=== PATIENT | male | born 1965 | race African-American/Black ===

== ENCOUNTER 2018-04-07 17:21 | Observation (INO) | payer OTHER ==
--- NOTE | 2018-04-07 17:33 | PDOC ---
History of Present Illness - General History Source: Patient Exam Limitations: No Limitations - History of Present Illness Initial Comments: 04/07/18 17:55 The patient is a 52 year old male, with a significant past medical history of essential thrombocytosis, who presents to the emergency department with left arm numbness since approximately 16:10 today. Patient reports he fell asleep on the train, but when he woke up he noted left arm numbness and EMS was activated. When EMS arrived on scene, patient reports his left arm numbness was localized from the left elbow to hand, and his BgM was 92. He reports some dizziness, which he relates to nervousness about the numbness. He denies any associated trauma, headache, lightheadedness, changes in vision, tingling, neck pain, nausea, or vomiting. Patient endorses mild chest discomfort 2 hours prior to presentation, but denies any shortness of breath, diaphoresis, palpitations, or lower extremity edema. He denies any fever, chills, or cough. He denies any recent travel or sick contacts. Allergies: NKDA Past Surgical History: None reported Social History: Non smoker. No ETOH or recreational drug use. <Johnny Laurent - Last Filed: 04/07/18 20:00> <Susana Zayas - Last Filed: 04/07/18 20:05> - General Chief Complaint: Head/Neck problem Stated Complaint: NUMBNESS Time Seen by Provider: 04/07/18 17:26 tPA Exclusion Checklist 0-3hr - Time Elapsed Date last known well: 04/07/18 Time last known well: 16:10 Elaspsed time: Day(s) and 3 Hour(s) and 54 Minutes - Thrombolytic Therapy Candidate Is the patient eligible for Thrombolytic Therapy?: No - Ineligibility reason(s) Reasons No tPA given: See reason(s) noted above (symptoms are resolving) <Susana Zayas - Last Filed: 04/07/18 20:05> NIH Stroke Scale - Last Known Well Date/Time & Onset Date Last Known Well: 04/07/18 Time Last Known Well: 16:10 - Initial Evaluation Level of consciousness: Alert Ask patient the month and their age: Answers both correctly Ask patient to open & close eyes; make fist and let go: Obeys both correctly Best gaze (horizontal eye movement): Normal Visual field testing: No visual field loss Facial paresis (Show teeth/raise eyebrows/close eyes tight): Normal symmetrical movement Motor Function: Left Arm: Normal Motor Function: Right Arm: Normal (extends arm 90 (or 45) degrees for 10 seconds without drift Motor Function: Left Leg: Normal (extends leg 30 degrees for 5 seconds without drift) Motor Function: Right Leg: Normal (extends leg 30 degrees for 5 seconds without drift) Limb Ataxia: No ataxia Sensory(Use pinprick test arms,legs,trunk,face/side to side): Mild to moderate decrease in sensation Best language (Describe picture, name items, read sentences): No Aphasia Dysarthria (read several words): Normal articulation Extinction and Inattention: No abnormality - Total Score NIH Stroke Scale Score: 1 <Susana Zayas - Last Filed: 04/07/18 20:05> Past History <Johnny Laurent - Last Filed: 04/07/18 20:00> <Susana Zayas - Last Filed: 04/07/18 20:05> - Past Medical History Allergies/Adverse Reactions: Allergies Allergy/AdvReac Type Severity Reaction Status Date / Time No Known Allergies Allergy Unverified 04/07/18 18:04 Home Medications: Ambulatory Orders NK [No Known Home Medication] 04/07/18 Review of Systems - Review of Systems Able to Perform ROS?: Yes Comments:: 04/07/18 17:55 GENERAL/CONSTITUTIONAL: No fever or chills. No weakness. HEAD, EYES, EARS, NOSE AND THROAT: No change in vision. No ear pain or discharge. No sore throat. GASTROINTESTINAL: No nausea, vomiting, diarrhea or constipation. GENITOURINARY: No dysuria, frequency, or change in urination. CARDIOVASCULAR: +Chest pain. No shortness of breath. RESPIRATORY: No cough, wheezing, or hemoptysis. MUSCULOSKELETAL: No joint or muscle swelling or pain. No neck or back pain. SKIN: No rash NEUROLOGIC: +Dizziness, left arm numbness. No headache, loss of consciousness. ENDOCRINE: No increased thirst. No abnormal weight change. HEMATOLOGIC/LYMPHATIC: No anemia, easy bleeding, or history of blood clots. ALLERGIC/IMMUNOLOGIC: No hives or skin allergy. <Johnny Laurent - Last Filed: 04/07/18 20:00> *Physical Exam - Physical Exam Comments: 04/07/18 17:56 Constitutional: Awake, alert, oriented. No acute distress. Head: Normocephalic. Atraumatic Eyes: PERRL. EOMI. Conjunctivae are not pale. ENT: Mucous membranes are moist and intact. Posterior pharynx without exudates or erythema. Uvula midline. Neck: Supple. Full ROM. No lymphadenopathy. Cardiovascular: Regular rate. Regular rhythm. S1, S2 regular. Distal pulses are 2+ and symmetric. Pulmonary/Chest: No evidence of respiratory distress. Clear to auscultation bilaterally No wheezing, rales or rhonchi. Abdominal: Soft and non-distended. There is no tenderness. No rebound, guarding or rigidity. No organomegaly. No palpable masses. Good bowel sounds. Back: No CVA tenderness. Musculoskeletal: No edema. No cyanosis. No clubbing. Full range of motion in all extremities. No calf tenderness. Radial/pedal pulses are intact and 2+ bilaterally Skin: Skin is warm and dry. No petechiae. No purpura. Neurological: Decreased sensation in left hand, which is improving. Alert and oriented to person, place, and time. Cranial nerves II-XII are grossly intact. Normal speech. Strength is grossly symmetric. No ataxia. Psychiatric: Good eye contact. Normal interaction, affect and behavior. <Johnny Laurent - Last Filed: 04/07/18 20:00> Heart Score/ECG Review - ECG Intrepretation Comment:: 04/07/18 18:04 sinus harmony at 50, nl axis, nl interval, lvh, t wave inversions III which are nonspecific, no other acute vitor/std <Susana Zayas - Last Filed: 04/07/18 20:05> ED Treatment Course - LABORATORY CBC & Chemistry Diagram: 04/07/18 17:43 04/07/18 17:43 - ADDITIONAL ORDERS Additional order review: 04/07/18 17:43 RBC 4.66 MCV 90.7 MCHC 33.3 RDW 14.8 MPV 8.1 Neutrophils % 65.6 Lymphocytes % 26.5 Monocytes % 6.0 Eosinophils % 1.1 Basophils % 0.8 - RADIOLOGY Radiograph Interpretation: 04/07/18 20:00 EXAM: Head CT INTERPRETED BY: Asia Berkowitz REVIEWED BY: Dr. Zayas IMPRESSION: Mild volume loss that is more prominent in the posterior fossa. No mass lesion, gross acute infarct or intracranial hemorrhage are identified. Correlate clinically to determine further evaluation and follow-up. EXAM: CXR INTERPRETED BY: Asia Berkowitz REVIEWED BY: Dr. Zayas IMPRESSION: No acute cardiopulmonary disease is present <Johnny Laurent - Last Filed: 04/07/18 20:00> - LABORATORY CBC & Chemistry Diagram: 04/07/18 17:43 04/07/18 17:43 <Susana Zayas - Last Filed: 04/07/18 20:05> Medical Decision Making - Critical Care Time Total Critical Care Time (minutes): 30 Critical Care Statement: The care of this patient involved high complexity decision making to prevent further life threatening deterioration of the patient 's condition and/or to evaluate & treat vital organ system(s) failure or risk of failure. - Medical Decision Making 04/07/18 17:44 a/p: 52yo male with essential thrombcytosis with L arm numbness -slept on the train - last known well was 4:10p, woke up with L arm numbness -no neck pain, no headache -pt states numbness was from elbow to hand, now only hand, resolving symptoms -glucose 92 by medics -code hill activated -consult placed to dr. cardenas -pt went to head ct -most likely TIA vs cervical radiculopathy from sleeping -will check labs -had cp 2 hours prior to numbness - will check ekg, cxr, ekg -will monitor and reassess 04/07/18 17:[address] Hernandez - no tpa, mild symptoms will see in consult asa if head ct negative 04/07/18 18:[address] with the patient pt agrees to stay for obs for tia/cp microblog sent to [facility] 04/07/18 20:04 case discussed with [facility] who accepts pt under Dr. Schafer to stroke tele <Susana Zayas - Last Filed: 04/07/18 20:05> *DC/Admit/Observation/Transfer - Attestations Scribe Attestion: 04/07/18 17:57 Documentation prepared by Johnny Laurent, acting as certified medical technician assistant for Susana Zayas DO. <Johnny Laurent - Last Filed: 04/07/18 20:00> - Discharge Dispostion Decision to Admit order: Yes - Attestations Physician Attestion: 04/07/18 18:54 I, Dr. Susana Zayas DO, attest that this document has been prepared under my direction and personally reviewed by me in its entirety. I further attest, that it accurately reflects all work, treatment, procedures and medical decision -making performed by me. <Susana Zayas - Last Filed: 04/07/18 20:05> Diagnosis at time of Disposition: TIA (transient ischemic attack), Chest pain - Discharge Dispostion Condition at time of disposition: Fair
[2018-04-07 17:50] LABS: BASO % 0.8 % (0-2.0); EOS % 1.1 % (0-4.5); HEMATOCRIT 42.3 % (35.4-49); HEMOGLOBIN 14.1 GM/dL (11.7-16.9); LYMPH % 26.5 % (8-40); MCH 30.2 pg (25.7-33.7); MCHC 33.3 g/dl (32.0-35.9); MEAN CELL VOLUME 90.7 fl (80-96); MEAN PLT VOLUME 8.1 fl (7.5-11.1); NEUT % 65.6 % (42.8-82.8); PLATELET COUNT 673 K/MM3 (134-434); RBC 4.66 M/mm3 (4.00-5.60); RDW 14.8 % (11.9-15.9)
[2018-04-07 18:03] LABS: INR 0.98 (0.82-1.09); PROTHROMBIN TIME (PATIENT) 11.1 SEC (9.7-13.0)
[2018-04-07 18:05] LABS: ACTIVATED PTT 43.7 SECONDS (26.9-34.4)
[2018-04-07 18:07] LABS: ALBUMIN 4.4 g/dl (3.4-5.0); ANION GAP 6 (8-16); BLOOD UREA NITROGEN 14 mg/dL (7-18); CALCIUM 9.1 mg/dL (8.5-10.1); CHLORIDE 105 mmol/L (98-107); CHOLESTEROL 151 mg/dL (50-200); CO2 28 mmol/L (21-32); CREATININE 1.1 mg/dL (0.7-1.3); GLUCOSE,RANDOM 103 mg/dL (74-106); MAGNESIUM 2.2 mg/dL (1.8-2.4); POTASSIUM 4.1 mmol/L (3.5-5.1); SGOT/AST 20 U/L (15-37); SGPT/ALT 28 U/L (12-78); SODIUM 139 mmol/L (136-145); TOT PROT 7.6 g/dl (6.4-8.2); TRIGLYCERIDES 106 mg/dL (35-160)
[2018-04-07 18:14] LABS: ALK PHOS 57 U/L (45-117); HDL CHOLESTEROL 45 mg/dL (40-60)
[2018-04-07] MEDS ORDERED: ASPIRIN 81 MG CHEWABLE TABLETS PO ONE (18:15)
[2018-04-07 18:21] LABS: URINE APPEARANCE CLEAR; URINE BILIRUBIN NEGATIVE (<2.0 mg/dL); URINE BLOOD NEGATIVE (NEGATIVE); URINE COLOR COLORLESS; URINE GLUCOSE (UA) NEGATIVE (NEGATIVE); URINE KETONE NEGATIVE (NEGATIVE); URINE LEUK ESTERASE NEGATIVE (NEGATIVE); URINE NITRITE NEGATIVE (NEGATIVE); URINE PROTEIN NEGATIVE (NEGATIVE); URINE UROBILINOGEN NEGATIVE mg/dL (0.2-1.0)
[2018-04-07] MEDS ORDERED: ASPIRIN 81 MG CHEWABLE TABLETS ONE (18:22)
[2018-04-07 18:28] VITALS: BMI 27.0
[2018-04-07 19:35] LABS: PLATELET ESTIMATE MOD INCREASED
--- NOTE | 2018-04-07 19:53 | PN ---
Teaching Attending Note Name of Resident: Wesley Kebede ATTENDING PHYSICIAN STATEMENT I saw and evaluated the patient. I reviewed the resident's note and discussed the case with the resident. I agree with the resident's findings and plan as documented. SUBJECTIVE: Patient is a 52 year old man, with a significant past medical history of essential thrombocytosis (never worked up), who presents to the ER with left arm numbness since approximately 16:10 today. Patient reports he fell asleep on the train, but when he woke up he noted left arm numbness and EMS was activated. When EMS arrived on scene, patient reports his left arm numbness was localized from the left elbow to hand. He reports some dizziness, which he relates to anxiety about the numbness. He also had mild chest discomfort 2 hours prior to presentation, but denies any shortness of breath, diaphoresis, palpitations, or lower extremity edema. He denies any associated trauma, headache, lightheadedness, changes in vision, tingling, neck pain, nausea, or vomiting. By the time he got to the ER, the arm numbness resolved and was limited to just his left thumb. OBJECTIVE: Alert and in no acute distress Vital Signs Period Temp Pulse Resp BP Sys/Almeida Pulse Ox Last 24 Hr 98.5 F 71 16 151/93 100 HEENT: No Jaundice, eye redness or discharge, PERRLA, EOMI. Normocephalic, atraumatic. External ears are normal and hearing is grossly intact. No nasal discharge. Neck: Supple, nontender. No palpable adenopathy or thyromegaly. No JVD Chest: Good effort. Clear to auscultation and percussion. Heart: Regular. No S3, rub or murmur Abdomen: Not distended, soft, nontender and no HSM. No rebound or guarding. Normoactive bowel sounds. Ext: Peripheral pulses intact. No leg edema. Skin: Warm and dry. No petechiae, rash or ecchymosis. Neuro: Alert. Oriented x3. CN 2-12 grossly intact. Left thumb paresthesia. 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 Home Medications Medication Instructions Recorded NK [No Known Home Medication] 04/07/18 Abnormal Lab Results 04/07/18 04/07/18 04/07/18 17:43 17:43 17:43 Plt Count 673 H PTT (Actin FS) 43.7 H Anion Gap 6 L TSH 3.81 H ASSESSMENT AND PLAN: 1. TIA - Head CT scan shows volume loss especially in the posterior fossa, which is unusual for a man his age. Will get an MRI/MRA of his brain to rule out CVA since essential thrombocytosis increases his risk for ischemic stroke. Will get a C spine MRI to rule out cervical radiculopathy. Will get lipid profile, treat with asprin and statin, get ECHO, carotid doppler and monitor on telemetry. Consult neurology. 2. Chestpain - Normal troponin but EKG shows bradycardia with nonspecific T wave changes and LVH. Will rule out ACS and consult cardiology. 3. Hypertension - Though he denies history of HTN, EKG shows LVH and his BP is high. Will repeat BP X 2 and treat him if it is still high - once CVA is excluded. Will use ARB, amlodipine and low salt diet 4. Elevated TSH - Will get T4 and T3RU. 5. Essential thrombocytosis - Consult hematology for further workup. 6. DVT prophylaxis - Heparin 5000u sq tid 7. Advance directives - Full code
--- NOTE | 2018-04-07 20:59 | HP ---
CHIEF COMPLAINT: PCP: HISTORY OF PRESENT ILLNESS: The patient is a 52 yo m w/ PMH essential thrombocytosis who comes in c/o left arm numbness and weakness since 4pm this afternoon. Earlier int , at approx 2pm, the patient had an episode of left sided chest pressure which resolved spontaneously after 1 minute. Patient decribes the pain as a pressure, non-radiating and denies any exacerbating or alleviating factors. The patient elected to take the train home due to fatigue. The patient endorses sleeping on the train, when he woke up the patient states that his left arm from shoulder to fingers were numb and weak. In addition, the patient states that he lost fine motor control in the same arm. The patient initially thought that his arm was asleep, but activated EMS when the feeling did not go away after a few minutes. en route to the hospital and in the ED, the patient's symptoms rapidly began to resolve and he now complains of only left thumb numbness. Patient denies trauma, SOB, fevers, chills, abdominal pain, back pain, nerve pain, changes in vision, headaches or other focal neurological symptoms. ER course was notable for: (1) CT head showing no acute processes, but volume loss in the posterior fossa. 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 -patient has recently started a new workout plan Family History: Grandfather and mother both with colon Ca Allergies No Known Allergies Allergy (Unverified 04/07/18 18:04) HOME MEDICATIONS: Home Medications Medication Instructions Recorded NK [No Known Home Medication] 04/07/18 REVIEW OF SYSTEMS CONSTITUTIONAL: Absent: fever, chills, diaphoresis, generalized weakness, malaise, loss of appetite, weight change HEENT: Absent: rhinorrhea, nasal congestion, throat pain, throat swelling, difficulty swallowing, mouth swelling, ear pain, eye pain, visual changes CARDIOVASCULAR: Absent: syncope, palpitations, irregular heart rate, lightheadedness, peripheral edema RESPIRATORY: Absent: cough, shortness of breath, dyspnea with exertion, orthopnea, wheezing, stridor, hemoptysis GASTROINTESTINAL: Absent: abdominal pain, abdominal distension, nausea, vomiting, diarrhea, constipation, melena, hematochezia GENITOURINARY: Absent: dysuria, frequency, urgency, hesitancy, hematuria, flank pain, genital pain MUSCULOSKELETAL: Absent: myalgia, arthralgia, joint swelling, back pain, neck pain SKIN: Absent: rash, itching, pallor HEMATOLOGIC/IMMUNOLOGIC: Absent: easy bleeding, easy bruising, lymphadenopathy, frequent infections ENDOCRINE: Absent: unexplained weight gain, unexplained weight loss, heat intolerance, cold intolerance NEUROLOGIC: Absent: headache, dizziness, unsteady gait, seizure, mental status changes, bladder or bowel incontinence PSYCHIATRIC: Absent: depression, suicidal or homicidal ideation, hallucinations. PHYSICAL EXAMINATION Vital Signs - 24 hr 04/07/18 04/07/18 04/07/18 17:25 18:30 19:56 Temperature 98.5 F Pulse Rate 71 Pulse Rate [ 62 48 L Apical] Respiratory 16 17 18 Rate Blood Pressure 151/93 Blood Pressure 142/76 133/83 [Left Arm] O2 Sat by Pulse 100 98 100 Oximetry (%) 04/07/18 20:42 Temperature Pulse Rate Pulse Rate [ 51 L Apical] Respiratory 17 Rate Blood Pressure Blood Pressure 137/84 [Left Arm] O2 Sat by Pulse Oximetry (%) GENERAL: Awake, alert, and fully oriented, in no acute distress. HEAD: Normal with no signs of trauma. EYES: Pupils equal, round and reactive to light, extraocular movements intact, sclera anicteric, conjunctiva clear. No lid lag. EARS, NOSE, THROAT: oropharynx clear without exudates. Moist mucous membranes. NECK: Normal range of motion, supple without lymphadenopathy, JVD, or masses. LUNGS: Breath sounds equal, clear to auscultation bilaterally. No wheezes, and no crackles. No accessory muscle use. HEART: Regular rate and rhythm, normal S1 and S2 without murmur, rub or gallop. ABDOMEN: Soft, nontender, not distended, normoactive bowel sounds, no guarding, no rebound, no masses. No hepatomegaly or splenomegaly. UPPER EXTREMITIES: 2+ pulses, warm, well-perfused. No cyanosis. No clubbing. No peripheral edema. LOWER EXTREMITIES: 2+ pulses, warm, well-perfused. No calf tenderness. No peripheral edema. NEUROLOGICAL: Cranial nerves II-X intact. Normal speech. Normal gait. Strength 5/5 in all four limbs b/l. Focal numbness over the left thumb, but sensation preserved in all other dermatomes. Rhomberg negative. PSYCHIATRIC: Cooperative. Good eye contact. Appropriate mood and affect. SKIN: Warm, dry, normal turgor, no rashes or lesions noted, normal capillary refill. Laboratory Results - last 24 hr 04/07/18 04/07/18 04/07/18 17:38 17:43 17:43 WBC 6.0 RBC 4.66 Hgb 14.1 Hct 42.3 MCV 90.7 MCH 30.2 MCHC 33.3 RDW 14.8 Plt Count 673 H MPV 8.1 Absolute Neuts (auto) 3.9 Neutrophils % 65.6 Lymphocytes % 26.5 Monocytes % 6.0 Eosinophils % 1.1 Basophils % 0.8 Nucleated RBC % 0 Platelet Estimate Mod increased Platelet Comment PT with INR 11.10 INR 0.98 PTT (Actin FS) 43.7 H Sodium Potassium Chloride Carbon Dioxide Anion Gap BUN Creatinine Creat Clearance w eGFR Random Glucose Calcium Magnesium Total Bilirubin AST ALT Alkaline Phosphatase Creatine Kinase Creatine Kinase Index CK-MB (CK-2) Troponin I Total Protein Albumin Triglycerides Cholesterol Total LDL Cholesterol HDL Cholesterol TSH Free T4 0.89 Urine Color Urine Appearance Urine pH Ur Specific [place] Urine Protein Urine Glucose (UA) Urine Ketones Urine Blood Urine Nitrite Urine Bilirubin Urine Urobilinogen Ur Leukocyte Esterase 04/07/18 04/07/18 17:43 18:20 WBC RBC Hgb Hct MCV MCH MCHC RDW Plt Count MPV Absolute Neuts (auto) Neutrophils % Lymphocytes % Monocytes % Eosinophils % Basophils % Nucleated RBC % Platelet Estimate Platelet Comment PT with INR INR PTT (Actin FS) Sodium 139 Potassium 4.1 Chloride 105 Carbon Dioxide 28 Anion Gap 6 L BUN 14 Creatinine 1.1 Creat Clearance w eGFR > 60 Random Glucose 103 Calcium 9.1 Magnesium 2.2 Total Bilirubin 1.0 AST 20 ALT 28 Alkaline Phosphatase 57 Creatine Kinase 190 Creatine Kinase Index 1.5 CK-MB (CK-2) 2.94 Troponin I < 0.02 Total Protein 7.6 Albumin 4.4 Triglycerides 106 Cholesterol 151 Total LDL Cholesterol 97 HDL Cholesterol 45 TSH 3.81 H Free T4 Urine Color Colorless Urine Appearance Clear Urine pH 6.0 Ur Specific [place] 1.003 Urine Protein Negative Urine Glucose (UA) Negative Urine Ketones Negative Urine Blood Negative Urine Nitrite Negative Urine Bilirubin Negative Urine Urobilinogen Negative Ur Leukocyte Esterase Negative ASSESSMENT/PLAN: The patient is a 52 yo m w/ PMH essential thrombocytosis who was BIBEMS c/o left sided CP followed by left arm numbness; admit for TIA workup #Arm numbness likely 2/2 cervical radiculopathy r/o TIA and stroke -CT head shows posterior fossa volume loss -will obtain Echo -will obtain carotid doppler -will obtain will obtain MRI/MRA brain -will obtain MRI Cspine -lipitor 80mg HS -asa 325 daily -neurology consulted from ED; Dr. Hernandez #Left sided chest pain likely muscular in origin, r/o ACS -initial EKG shows LVH and sinus harmony -trop negative x1; will trend Q6H -Rpt EKG in AM -cardiology consult; Dr. Castro #Elevated TSH -3.81 in ED -will obtain free T3, T4, T3 uptake #Essential thrombocytosis -monitor platelet count #Elevated BP on admission -possible undiagnosed HTN -monitor and may start antihypertensive if remains elevated #FEN -no fluids indicated -lytes WNL, replete PRN -sodium controlled diet #Prophy -patient predicted to have short hospital stay -patient ambulatory #Dispo -admit for tele obs Visit type - Emergency Visit Emergency Visit: Yes ED Registration Date: 04/07/18 Care time: The patient presented to the Emergency Department on the above date and was hospitalized for further evaluation of their emergent condition. - New Patient This patient is new to me today: Yes Date on this admission: 04/07/18 - Critical Care Critical Care patient: No Hospitalist Screening - Colonoscopy Questionnaire Colonoscopy Questionnaire: Colonoscopy Questionnaire - Patient: 50 - 75 years old and never had a screening colonoscopy: No History of colon or rectal polyps, or CA: No History of IBD, Crohn's disease or UC: No History of abdominal radiation therapy as a child: No - Relative: 1 with colon or rectal CA, or polyps at age 60 or younger: Yes Colon or rectal CA diagnosed at age 45 or younger: No Multiple relatives with colon or rectal CA: Yes - Outcome: Screening Result: Positive Screen
--- NOTE | 2018-04-07 21:26 | CON.NEURO ---
Consult Consult Specialty:: NEUROLOGY-LINH ARREDONDO - History of Present Illness Chief Complaint: left arm numbness History of Present Illness: The patient is a 52 year old male, with a significant past medical history of essential thrombocytosis, who presents to the emergency department with left arm numbness since approximately 16:10 today. Patient reports he fell asleep on the train, but when he woke up he noted left arm numbness and EMS was activated. When EMS arrived on scene, patient reports his left arm numbness was localized from the left elbow to hand, and his BgM was 92. He reports some dizziness, which he relates to nervousness about the numbness. He denies any associated trauma, headache, lightheadedness, changes in vision, tingling, neck pain, nausea, or vomiting. Patient endorses mild chest discomfort 2 hours prior to presentation, but denies any shortness of breath, diaphoresis, palpitations, or lower extremity edema. He denies any fever, chills, or cough. He denies any recent travel or sick contacts.He reports minimal clumsiness of left hand accompanying numbness, denies facial numbness and all other neurologic symptoms. - Alcohol/Substance Use Hx Alcohol Use: No - Smoking History Smoking history: Never smoked Home Medications - Allergies Allergies/Adverse Reactions: Allergies Allergy/AdvReac Type Severity Reaction Status Date / Time No Known Allergies Allergy Unverified 04/07/18 18:04 - Home Medications Home Medications: Ambulatory Orders NK [No Known Home Medication] 04/07/18 Physical Exam-Neuro Vital Signs: Vital Signs Temperature 98.5 F 04/07/18 17:25 Pulse Rate 51 L 04/07/18 20:42 Respiratory Rate 17 04/07/18 20:42 Blood Pressure 137/84 04/07/18 20:42 O2 Sat by Pulse Oximetry (%) 100 04/07/18 19:56 Labs: CBC, BMP 04/07/18 17:43 04/07/18 17:43 INR, PTT INR 0.98 (0.82-1.09) 04/07/18 17:43 - Neuro Exam Mini Mental Exam: Intact DTR's: 2+ Left Bicep, 2+ Right Bicep, 2+ Left Tricep, 2+ Right Tricep, 2+ Left Brachioradialis, 2+ Right Brachioradialis, 2+ Left Achilles, 2+ Right Achilles Motor Strength: 5/5: Left Arm, Right Arm, Left Leg, Right Leg (No drift+ minimal impaired fine finger movements left hand) Gait: Normal Imaging - Results Cat Scan: Report Reviewed (Minimal volume loss only, no acute event noted) Assessment/Plan Pt. with thrombocytosis, now with left arm numbness that improved since inception, minimal diminished left hand dexterity-Likely right subcortical sensory/motor TIA?? thrombocytosis as etiology. Pt. scored 1 on NIHSS, not meeting criteria for tPA. Suggest-ASA 325mg daily, MRI brain, carotid ultrasound, telemetry, cardiology opinion, consider hematology opinion re;rx. of thrombocytosis. Thank you Krystin Hernandez MD
[2018-04-07] MEDS ORDERED: ASPIRIN 325 MG ENTERIC COATED TABLET (FP) PO SCH (21:30)
[2018-04-07] MEDS ORDERED: ATORVASTATIN CA 80 MG TABLET (FP) PO SCH (22:00)
[2018-04-08 08:57] LABS: ALBUMIN 3.7 g/dl (3.4-5.0); ALK PHOS 51 U/L (45-117); ANION GAP 8 (8-16); BILIRUBIN,TOTAL 1.6 mg/dL (0.2-1.0); BLOOD UREA NITROGEN 12 mg/dL (7-18); CALCIUM 8.9 mg/dL (8.5-10.1); CHLORIDE 106 mmol/L (98-107); CO2 28 mmol/L (21-32); CREATININE 1.1 mg/dL (0.7-1.3); GLUCOSE,RANDOM 86 mg/dL (74-106); MAGNESIUM 2.2 mg/dL (1.8-2.4); PHOSPHOROUS 3.5 mg/dL (2.5-4.9); POTASSIUM 4.2 mmol/L (3.5-5.1); SGOT/AST 18 U/L (15-37); SGPT/ALT 24 U/L (12-78); SODIUM 142 mmol/L (136-145); TOT PROT 6.4 g/dl (6.4-8.2)
[2018-04-08 09:04] LABS: BASO % 0.9 % (0-2.0); EOS % 1.3 % (0-4.5); HEMATOCRIT 39.6 % (35.4-49); HEMOGLOBIN 13.2 GM/dL (11.7-16.9); LYMPH % 23.3 % (8-40); MCH 30.4 pg (25.7-33.7); MCHC 33.4 g/dl (32.0-35.9); MEAN CELL VOLUME 90.8 fl (80-96); MEAN PLT VOLUME 8.9 fl (7.5-11.1); NEUT % 66.5 % (42.8-82.8); PLATELET COUNT 534 K/MM3 (134-434); RBC 4.36 M/mm3 (4.00-5.60); RDW 14.9 % (11.9-15.9); WHITE BLOOD COUNT 6.1 K/mm3 (4.0-10.0)
--- NOTE | 2018-04-08 09:50 | CONSULT ---
Admitting History and Physical - Primary Care Physician PCP: Aruna Patel - Admission History of Present Illness: : The patient is a 52 yo m w/ PMH essential thrombocytosis who was BIBEMS c/o left sided CP followed by left arm numbness; admit for TIA workup Presently, left thumb "feels like plastic". Otherwise, no persistent symptoms. Denied change in speech, swallowing, vision, cognition. History Source: Patient Limitations to Obtaining History: No Limitations - Smoking History Smoking history: Never smoked - Alcohol/Substance Use Hx Alcohol Use: No History - Admission Reason For Visit: CHEST PAIN, TRANSIENT CEREBRAL ISCHEMIA - Diagnostics X-ray: Report Reviewed MRI: Pending - General Mental Status: Alert and Oriented, Awake and Alert, Able to Follow Commands Attention: Intact Ability to Follow Directions: Excellent Head/Neck Control: WFL - Hearing Hearing: Normal Speech Evaluation - Communication Primary Language: GREEN[place] Communication: Yes: Within Normal Limits Oral Expression Ability: Yes: No Impairment - Speech Production Able to Make Needs Known: Yes: WNL Intelligibility: Yes: WNL - Language/Auditory Comprehension Follows: Yes: Complex Commands - Language/Verbal Expression Able to Respond to Simple Queries: Yes: WNL Able to Communicate Wants and Needs: Yes: WNL Functional Communication Status: Yes: WNL - Memory/Perception terminal superintendent Memory: Yes: WNL Short Term Memory: Yes: WNL - Swallow Evaluation/Bedside Assessment Current Nutritional Intake: Regular, Thin Liquids Oral Secretions: Yes: WFL Dentition: Yes: Adequate Facial Symmetry at Rest: Symmetrical Facial Symmetry on Retraction: Symmetrical Facial Movement: Controlled Sensation: Normal Against Resistance Opening: Normal Against Resistance Closing: Normal Pucker Lips: Normal Smile: Normal Lingual Movement: Normal, Symmetric Lingual Speed of Movement: Normal Lingual Movement Strgth Against Opposition: Normal Lingual Movement Characteristics: Normal Velopharyngeal Movement: Normal Laryngeal Elevation: WFL Laryngeal Movement: Able to Palpate Rate of Intake: WFL Bolus Size: WFL Labial Seal: WFL Chewing: WFL Oral Prep Time: WFL A-P Transit: WFL Pocketing: None Timing of Swallow: WFL Coughing/Throat Clear: No Change in Voice: No Recommendations - Speech Evaluation, Impression/Plan Impression: Speech, swallowing,Cognition, Language intact. Thumb sensory symptoms remain. Pending MRI. - Dysphagia Impressions/Plan Swallowing Skills: WFL Dysphagia Impressions: No Impairment *Silent aspiration: cannot be R/O at bedside - Recommendations Diet Consistency: Regular Medication Administration: Whole with water Liquids: Thin Liquids
--- NOTE | 2018-04-08 11:12 | EKG ---
Test Reason : Blood Pressure : / mmHG Vent. Rate : 050 BPM Atrial Rate : 050 BPM P-R Int : 172 ms QRS Dur : 090 ms QT Int : 434 ms P-R-T Axes : 055 -07 011 degrees QTc Int : 395 ms SINUS BRADYCARDIA VOLTAGE CRITERIA FOR LEFT VENTRICULAR HYPERTROPHY ABNORMAL ECG NO PREVIOUS ECGS AVAILABLE Confirmed by MISSY ARREDONDO, SIMONA ([id number]) on 04/08/2018 11:12:21 AM Referred By: Confirmed By:SIMONA LOUIS MD
--- NOTE | 2018-04-08 14:32 | CON.CARD ---
Consult Consult Specialty:: Cardiology Reason for Consultation:: Left arm weakness - History of Present Illness History of Present Illness: 52 year old male, with essential thrombocytosis, who presents to the emergency department with left arm numbness. He reported some dizziness, which he relates to nervousness about the numbness. He denies any associated trauma, headache, lightheadedness, changes in vision, tingling, neck pain, nausea, or vomiting. Patient endorses mild chest discomfort 2 hours prior to presentation, but denies any shortness of breath, diaphoresis, palpitations, or lower extremity edema. He denies any fever, chills, or cough. He denies any recent travel or sick contacts. Previous cardiac testing was reportedly negative. - History Source History Provided By: Patient Limitations to Obtaining History: No Limitations - Alcohol/Substance Use Hx Alcohol Use: No - Smoking History Smoking history: Never smoked Home Medications - Allergies Allergies/Adverse Reactions: Allergies Allergy/AdvReac Type Severity Reaction Status Date / Time No Known Allergies Allergy Unverified 04/07/18 18:04 - Home Medications Home Medications: Ambulatory Orders NK [No Known Home Medication] 04/07/18 Review of Systems - Review of Systems Constitutional: reports: No Symptoms Eyes: reports: No Symptoms HENT: reports: No Symptoms Neck: reports: No Symptoms Cardiovascular: reports: No Symptoms Respiratory: reports: No Symptoms Gastrointestinal: reports: No Symptoms Genitourinary: reports: No Symptoms Vital Signs: Vital Signs Temperature 98.2 F 04/08/18 07:59 Pulse Rate 62 04/08/18 07:59 Respiratory Rate 18 04/08/18 07:59 Blood Pressure 127/81 04/08/18 07:59 O2 Sat by Pulse Oximetry (%) 96 04/08/18 10:00 Constitutional: Yes: Well Nourished, No Distress, Calm Eyes: Yes: Conjunctiva Clear, EOM Intact HENT: Yes: Atraumatic, Normocephalic Neck: Yes: Supple, Trachea Midline Respiratory: Yes: Regular, CTA Bilaterally Gastrointestinal: Yes: Normal Bowel Sounds, Soft Renal/: Yes: WNL Cardiovascular: Yes: Regular Rate and Rhythm. No: Pulse Irregular, Gallop JVD: No Carotid Bruit: No PMI: Non-Displaced Heart Sounds: Yes: S1, S2 Murmur: No: Systolic Murmur, Diastolic Murmur Edema: No Peripheral Pulses WNL: No - Other Data Labs, Other Data: CBC, BMP 04/08/18 06:00 04/08/18 05:20 INR, PTT INR 0.98 (0.82-1.09) 04/07/18 17:43 Troponin, BNP 04/07/18 04/08/18 17:43 00:50 Troponin I < 0.02 < 0.02 Troponin, BNP 04/07/18 04/08/18 17:43 00:50 Troponin I < 0.02 < 0.02 Sinus bradycardia with LVH No ST T changes. Echo: Report Reviewed Holter: Other (On telemetry has mild sinus bradycardia) Problem List - Problems (1) TIA (transient ischemic attack) Code(s): G45.9 - TRANSIENT CEREBRAL ISCHEMIC ATTACK, UNSPECIFIED Assessment/Plan 52 M with essential thrombosis. Admitted with atypical chest pain and transient arm numbness. Symptoms have improved significantly. His chest pain is atypical with negative biomarker and ECG findings. Likely TIA and possibly due to his thrombocytosis No evidence of arrhythmia on telemetry. Consider hematology evaluation Continue ASA Will see as needed.
--- NOTE | 2018-04-08 15:03 | PN ---
Teaching Attending Note Name of Resident: Jaylon Maier ATTENDING PHYSICIAN STATEMENT I saw and evaluated the patient. I reviewed the resident's note and discussed the case with the resident. I agree with the resident's findings and plan as documented. SUBJECTIVE:numbness is limited to L thumb only at this time. was initially the entire arm from the elbow to the hand. started suddenly when waking up while on the train. denies CP, SOB, fever, chills, N/V/C/D, weakness, slurred speech, dysarthria OBJECTIVE: Last Vital Signs Temp Pulse Resp BP Pulse Ox 98.5 F 67 16 131/69 96 04/08/18 14:30 04/08/18 14:30 04/08/18 14:30 04/08/18 14:30 04/08/18 10:00 General NAD CV S1 S2 RRR no murmur/rub/gallop Lungs CTA B/L no wheezing/rales/rhonchi Neuro CN II -XII grossly intact. numbness limited to the L thumb. strength equal in all 4 extremities. no pronator drift ASSESSMENT AND PLAN: 52yo M with PMH essential thrombocytosis presented to the ER with LUE numbness 1. LUE numbness- concern for TIA/CVA given PMH however can not r/o radicuopathy. workup so far has been negative. echo and carotid doppler negative. awaiting MRI of brain and c-spine to be done. evaluated by neuro, DIRECTOR OF EDUCATION AND TRAINING and PT. cont asa/statin 2. CP- reports never had CP. cardiac enzymes neg x2,. echo with no WMA. evaluted by cardio 3. TSH normal- admitting team documented TSH was elevated but is in the normal range. 0.5-5 is considered normal. without symptoms and normal t3/t4 would not treat 4. Essential thrombocytosis- on asa. f/u with heme as outpatient. sees someone regularly 5. d/c home pending MRI results as pt symptoms mostly resolved.
--- NOTE | 2018-04-08 17:24 | PN ---
Physical Exam: SUBJECTIVE: Patient seen and examined at bedside. OBJECTIVE: Vital Signs Period Temp Pulse Resp BP Sys/[place] Pulse Ox Last 24 Hr 97.9 F-98.5 F 48-71 16-18 127-151/69-93 96-100 Gen: comfortable, NAD HEENT: NCAT, perrl, eomi Neck: supple, no jvd, no bruits Cardio: s1 fixed split s2, no m/r/g Pulm: cta ext: no edema 2+ pulses Neuro: no focal deficits, sensation intact Laboratory Results - last 24 hr 04/07/18 04/07/18 04/07/18 17:38 17:43 17:43 WBC 6.0 RBC 4.66 Hgb 14.1 Hct 42.3 MCV 90.7 MCH 30.2 MCHC 33.3 RDW 14.8 Plt Count 673 H MPV 8.1 Absolute Neuts (auto) 3.9 Neutrophils % 65.6 Lymphocytes % 26.5 Monocytes % 6.0 Eosinophils % 1.1 Basophils % 0.8 Nucleated RBC % 0 Platelet Estimate Mod increased Platelet Comment PT with INR 11.10 INR 0.98 PTT (Actin FS) 43.7 H Sodium Potassium Chloride Carbon Dioxide Anion Gap BUN Creatinine Creat Clearance w eGFR Random Glucose Calcium Phosphorus Magnesium Total Bilirubin AST ALT Alkaline Phosphatase Creatine Kinase Creatine Kinase Index CK-MB (CK-2) Troponin I Total Protein Albumin Triglycerides Cholesterol Total LDL Cholesterol HDL Cholesterol TSH Free T4 0.89 Resin T3 Uptake Urine Color Urine Appearance Urine pH Ur Specific [place] Urine Protein Urine Glucose (UA) Urine Ketones Urine Blood Urine Nitrite Urine Bilirubin Urine Urobilinogen Ur Leukocyte Esterase Blood Type Antibody Screen 04/07/18 04/07/18 04/07/18 17:43 18:09 18:20 WBC RBC Hgb Hct MCV MCH MCHC RDW Plt Count MPV Absolute Neuts (auto) Neutrophils % Lymphocytes % Monocytes % Eosinophils % Basophils % Nucleated RBC % Platelet Estimate Platelet Comment PT with INR INR PTT (Actin FS) Sodium 139 Potassium 4.1 Chloride 105 Carbon Dioxide 28 Anion Gap 6 L BUN 14 Creatinine 1.1 Creat Clearance w eGFR > 60 Random Glucose 103 Calcium 9.1 Phosphorus Magnesium 2.2 Total Bilirubin 1.0 AST 20 ALT 28 Alkaline Phosphatase 57 Creatine Kinase 190 Creatine Kinase Index 1.5 CK-MB (CK-2) 2.94 Troponin I < 0.02 Total Protein 7.6 Albumin 4.4 Triglycerides 106 Cholesterol 151 Total LDL Cholesterol 97 HDL Cholesterol 45 TSH 3.81 H Free T4 Resin T3 Uptake Urine Color Colorless Urine Appearance Clear Urine pH 6.0 Ur Specific [place] 1.003 Urine Protein Negative Urine Glucose (UA) Negative Urine Ketones Negative Urine Blood Negative Urine Nitrite Negative Urine Bilirubin Negative Urine Urobilinogen Negative Ur Leukocyte Esterase Negative Blood Type O NEGATIVE Antibody Screen Negative 04/08/18 04/08/18 04/08/18 00:50 05:20 05:30 WBC RBC Hgb Hct MCV MCH MCHC RDW Plt Count MPV Absolute Neuts (auto) Neutrophils % Lymphocytes % Monocytes % Eosinophils % Basophils % Nucleated RBC % Platelet Estimate Platelet Comment PT with INR INR PTT (Actin FS) Sodium 142 Potassium 4.2 Chloride 106 Carbon Dioxide 28 Anion Gap 8 BUN 12 Creatinine 1.1 Creat Clearance w eGFR > 60 Random Glucose 86 Calcium 8.9 Phosphorus 3.5 Magnesium 2.2 Total Bilirubin 1.6 H D AST 18 ALT 24 Alkaline Phosphatase 51 Creatine Kinase Creatine Kinase Index CK-MB (CK-2) Troponin I < 0.02 Total Protein 6.4 Albumin 3.7 Triglycerides Cholesterol Total LDL Cholesterol HDL Cholesterol TSH Free T4 0.83 Resin T3 Uptake 36.9 Urine Color Urine Appearance Urine pH Ur Specific [place] Urine Protein Urine Glucose (UA) Urine Ketones Urine Blood Urine Nitrite Urine Bilirubin Urine Urobilinogen Ur Leukocyte Esterase Blood Type Antibody Screen 04/08/18 06:00 WBC 6.1 RBC 4.36 Hgb 13.2 Hct 39.6 MCV 90.8 MCH 30.4 MCHC 33.4 RDW 14.9 Plt Count 534 H D MPV 8.9 Absolute Neuts (auto) 4.1 Neutrophils % 66.5 Lymphocytes % 23.3 Monocytes % 8.0 Eosinophils % 1.3 Basophils % 0.9 Nucleated RBC % 0 Platelet Estimate Platelet Comment PT with INR INR PTT (Actin FS) Sodium Potassium Chloride Carbon Dioxide Anion Gap BUN Creatinine Creat Clearance w eGFR Random Glucose Calcium Phosphorus Magnesium Total Bilirubin AST ALT Alkaline Phosphatase Creatine Kinase Creatine Kinase Index CK-MB (CK-2) Troponin I Total Protein Albumin Triglycerides Cholesterol Total LDL Cholesterol HDL Cholesterol TSH Free T4 Resin T3 Uptake Urine Color Urine Appearance Urine pH Ur Specific [place] Urine Protein Urine Glucose (UA) Urine Ketones Urine Blood Urine Nitrite Urine Bilirubin Urine Urobilinogen Ur Leukocyte Esterase Blood Type Antibody Screen Active Medications Generic Name Dose Route Start Last Admin Trade Name Freq PRN Reason Stop Dose Admin Atorvastatin Calcium 80 mg 04/07/18 22:00 04/07/18 22:53 Lipitor - PO 80 mg HS SHIRA Administration ASSESSMENT/PLAN: Pt is a 52 y/o M with PMH essential thrombocytosis who presents to ED with L arm numbness. Symptoms were all but resolved by the time the patient reached the ED. Pt was admitted for stroke and cardiac workup. #r/o CVA/TIA -symptoms resolved -CT head neg -Brain MRI/MRA unremarkable -carotid u/s unremarkable -Echo unremarkable -neuro consulted -lipids unremarkable -monitor uneventful so far -ASA 325 -Lipitor #r/o PA -Trop neg x 2 -EKG unremarkable -Cardio consulted -CXR #? hypothyroid -TSH 3.81 -T4 pending #Essential thrombocytosis -chronic #FEN -not on fluids -lytes wnl -Na controlled diet #PPx -SCDs -Pt is ambulatory #Dispo -Obs for CVA/PA workup Jaylon Maier MD PGY-1 IM Visit type - Emergency Visit Emergency Visit: No - New Patient This patient is new to me today: Yes Date on this admission: 04/08/18 - Critical Care Critical Care patient: No - Discharge Referral Referred to [facility] No
[2018-04-08 18:09] VITALS: BP 118/70; PULSE 61; TEMP 97.7
[2018-04-09] MEDS ORDERED: ASPIRIN 325 MG ENTERIC COATED TABLET (FP) PO SCH (10:00)
== END 2018-04-08 19:00 | disposition home or self-care (01) ==
LOC: JER 17:21 → JERBED 20:05 → J4S 20:49
PROVIDERS: ADMIT Internal Medicine; ATTEND Internal Medicine
DX: G45.9 Transient cerebral ischemic attack, unspecified (principal); R20.0 Anesthesia of skin; R07.9 Chest pain, unspecified; I10 Essential (primary) hypertension; R94.6 Abnormal results of thyroid function studies; D47.3 Essential (hemorrhagic) thrombocythemia
CPT/HCPCS: 36415; 70450-TC; 70544-TC; 70551-TC; 71045-TC-FY; 72141-TC; 80053; 80061; 81003; 82550; 82553; 83036; 83721; 83735; 84100; 84439; 84443; 84479; 84481; 84484; 85025; 85610; 85730; 86850; 86900; 86901; 93005; 93010; 93306-TC; 93880-TC; 99284-25; G0378